=== PATIENT | female | born 1985 | race Caucasian/White ===

== ENCOUNTER 2017-11-28 15:13 | Emergency (ER) | payer OTHER | END 2017-11-28 15:30 | disposition home or self-care (01) | LOC: E/R 15:13 | DX: O99.89 Other specified diseases and conditions complicating pregnancy, childbirth and the puerperium (principal); H66.92 Otitis media, unspecified, left ear; Z3A.24 24 weeks gestation of pregnancy | CPT/HCPCS: 99283; Z7502 ==

== ENCOUNTER 2018-02-13 21:59 | Outpatient (CLI) | payer OTHER ==
[2018-02-13 23:19] LABS: ADD MAN DIFF? NO
[2018-02-13 23:23] LABS: WHITE BLOOD COUNT 14.9 10^3/ul (4.8-10.8)
[2018-02-13 23:23] LABS: BASOPHIL # 0.1 10^3/ul (0.0-0.1); BASOPHILS % 0.3 % (0.0-2.0); EOSINOPHILS % 0.3 % (0.0-7.0); HEMATOCRIT 33.7 % (37.0-47.0); HEMOGLOBIN 11.9 g/dl (12.0-16.0); LYMPHOCYTES # 1.8 10^3/ul (0.8-2.9); LYMPHOCYTES % 11.8 % (15.0-51.0); MEAN CORPUSCULAR HEMOGLOBIN 31.2 pg (29.0-33.0); MEAN CORPUSCULAR HGB CONC 35.3 g/dl (32.0-37.0); MEAN CORPUSCULAR VOLUME 88.5 fl (82.0-101.0); MEAN PLATELET VOLUME 11.1 fl (7.4-10.4); MONOCYTE # 0.9 10^3/ul (0.3-0.9); MONOCYTES % 6.3 % (0.0-11.0); NEUTROPHIL # 12.1 10^3/ul (1.6-7.5); NEUTROPHILS % 80.7 % (39.0-77.0); PLATELET COUNT 140 10^3/UL (140-415); RED BLOOD COUNT 3.81 10^6/ul (4.20-5.40); RED CELL DISTRIBUTION WIDTH 11.9 % (11.5-14.5)
[2018-02-13 23:40] LABS: ALANINE AMINOTRANSFERASE 27 IU/L (13-69); ALBUMIN 3.5 g/dl (3.3-4.9); ALBUMIN/GLOBULIN RATIO 1.25; ALKALINE PHOSPHATASE 107 IU/L (42-121); ANION GAP 14 (8-16); ASPARTATE AMINO TRANSFERASE 14 IU/L (15-46); BILIRUBIN,INDIRECT 0.5 mg/dl (0-1.1); BILIRUBIN,TOTAL 0.5 mg/dl (0.2-1.3); BLOOD UREA NITROGEN 9 mg/dl (7-20); CALCIUM 8.8 mg/dl (8.4-10.2); CARBON DIOXIDE 23 mmol/L (21-31); CHLORIDE 104 mmol/L (97-110); GLUCOSE 89 mg/dl (70-220); POTASSIUM 3.7 mmol/L (3.5-5.1); SODIUM 137 mmol/L (135-144); TOTAL PROTEIN 6.3 g/dl (6.1-8.1); URIC ACID 3.9 mg/dl (3.1-7.9)
[2018-02-13 23:54] LABS: ADD UMIC YES; UR ASCORBIC ACID NEGATIVE (NEGATIVE); UR BILIRUBIN (Dip) NEGATIVE (NEGATIVE); UR BLOOD (Dip) NEGATIVE (NEGATIVE); UR CLARITY CLEAR (CLEAR); UR COLOR COLORLESS (YELLOW); UR GLUCOSE (Dip) NEGATIVE (NEGATIVE); UR KETONES (Dip) NEGATIVE (NEGATIVE); UR LEUKOCYTE ESTERASE (Dip) TRACE Leu/ul (NEGATIVE); UR NITRITE (Dip) NEGATIVE (NEGATIVE); UR RBC 1 /HPF (0-5); UR SPECIFIC GRAVITY (Dip) 1.003 (1.003-1.030); UR TOTAL PROTEIN (Dip) NEGATIVE (NEGATIVE); UR UROBILINOGEN (Dip) NEGATIVE (NEGATIVE); UR WBC 2 /HPF (0-5)
[2018-02-14] MEDS: ACETAMINOPHEN 500 MG TAB PO (00:33)
== END 2018-02-14 01:20 | disposition home or self-care (01) ==
LOC: OBT 02-14 01:20 → L-D 21:59
DX: O60.03 Preterm labor without delivery, third trimester (principal); O26.893 Other specified pregnancy related conditions, third trimester; R51 Headache; Z3A.39 39 weeks gestation of pregnancy
CPT/HCPCS: 76815; 76818; 80053; 81001; 84560; 85025

== ENCOUNTER 2018-02-23 10:18 | Inpatient (IN) | payer OTHER ==
[2018-02-23] MEDS ORDERED: OXYTOCIN 30 UNITS/LR 500 ML IV (12:00)
[2018-02-23] MEDS ORDERED: CARBOPROST 250 MCG INJ IM (12:00)
[2018-02-23] MEDS ORDERED: MISOPROSTOL 200 MCG TAB PR (12:00)
[2018-02-23] MEDS ORDERED: IBUPROFEN 600 MG TAB PO (12:00)
[2018-02-23] MEDS ORDERED: METHYLERGONOVINE 0.2 MG INJ IM (12:00)
[2018-02-23] MEDS ORDERED: BUTORPHANOL 2 MG INJ IV (12:00)
[2018-02-23] MEDS ORDERED: LIDOCAINE 1% (MPF) 30 ML INJ INJ (12:00)
[2018-02-23 12:09] LABS: ADD MAN DIFF? NO
[2018-02-23 12:11] LABS: BASOPHILS % 0.2 % (0.0-2.0); EOSINOPHILS # 0.1 10^3/ul (0.0-0.5); EOSINOPHILS % 0.5 % (0.0-7.0); HEMATOCRIT 34.1 % (37.0-47.0); LYMPHOCYTES # 1.4 10^3/ul (0.8-2.9); LYMPHOCYTES % 14.1 % (15.0-51.0); MEAN CORPUSCULAR HEMOGLOBIN 30.9 pg (29.0-33.0); MEAN CORPUSCULAR HGB CONC 35.2 g/dl (32.0-37.0); MEAN CORPUSCULAR VOLUME 87.9 fl (82.0-101.0); MEAN PLATELET VOLUME 10.8 fl (7.4-10.4); MONOCYTE # 0.6 10^3/ul (0.3-0.9); MONOCYTES % 6.4 % (0.0-11.0); NEUTROPHIL # 7.6 10^3/ul (1.6-7.5); NEUTROPHILS % 78.1 % (39.0-77.0); PLATELET COUNT 156 10^3/UL (140-415); RED BLOOD COUNT 3.88 10^6/ul (4.20-5.40); RED CELL DISTRIBUTION WIDTH 12.1 % (11.5-14.5)
[2018-02-23 12:11] LABS: WHITE BLOOD COUNT 9.8 10^3/ul (4.8-10.8)
[2018-02-23 13:13] LABS: INR 0.96; PARTIAL THROMBOPLASTIN TIME 26.3 Sec (25.0-35.0); PROTIME 12.9 Sec (11.9-14.9)
[2018-02-23] MEDS: MISOPROSTOL 25 MCG CAPSULE PO ×3 (15:46→21:06)
[2018-02-23] MEDS: LACTATED RINGER'S 1,000 ML IV* ×2 (15:55→21:07)
[2018-02-23 21:34] LABS: HEPATITIS B SURFACE ANTIGEN NEGATIVE (NEGATIVE)
[2018-02-24] MEDS: MISOPROSTOL 25 MCG CAPSULE PO (01:10)
[2018-02-24] MEDS: LACTATED RINGER'S 1,000 ML IV* ×7 (03:46→19:00)
[2018-02-24] MEDS ORDERED: FENTAnyl 2MCG/ML-ROPIV 0.2% 100 ML (04:39)
[2018-02-24] MEDS ORDERED: NALOXONE (0.4 MG/ML) INJ IV (05:30)
[2018-02-24] MEDS ORDERED: DIPHENHYDRAMINE 50 MG INJ IV ×2 (05:30→10:30)
[2018-02-24] MEDS ORDERED: EPHEDrine SULFATE 50 MG/5 ML SYG IV (05:30)
[2018-02-24] MEDS ORDERED: FENTAnyl 2MCG/ML-ROPIV 0.2% 100 ML BAG EPI (05:30)
[2018-02-24] MEDS ORDERED: ONDANSETRON 4 MG INJ IV ×2 (05:30→10:30)
[2018-02-24] MEDS ORDERED: OXYTOCIN 30 UNITS/LR 500 ML IV ×2 (08:00→10:30)
[2018-02-24] MEDS: OXYTOCIN 30 UNITS/LR 500 ML IV ×2 (08:23→08:49)
[2018-02-24] MEDS ORDERED: DEXTROSE 5%-LR 1,000 ML IV (10:18)
[2018-02-24] MEDS ORDERED: ACETAMINOPHEN 325 MG TAB PO (10:30)
[2018-02-24] MEDS ORDERED: ZOLPIDEM 5 MG TAB PO (10:30)
[2018-02-24] MEDS ORDERED: LANOLIN 7 GM TUBE TOP (10:30)
[2018-02-24] MEDS ORDERED: CARBOPROST 250 MCG INJ IM (10:30)
[2018-02-24] MEDS ORDERED: OXYCODONE/ASPIRIN (4.88/325) TAB PO (10:30)
[2018-02-24] MEDS ORDERED: DIBUCAINE 1% 30 GM OINT PR (10:30)
[2018-02-24] MEDS ORDERED: METHYLERGONOVINE 0.2 MG INJ IM (10:30)
[2018-02-24] MEDS ORDERED: MISOPROSTOL 200 MCG TAB PR (10:30)
[2018-02-24] MEDS ORDERED: SENNA/DOCUSATE NA (8.6MG/50MG) TAB PO (10:30)
[2018-02-24] MEDS: IBUPROFEN 600 MG TAB PO ×2 (11:48→17:48)
[2018-02-24] MEDS: BENZOCAINE 20% 56 ML SPRAY TOP (11:49)
[2018-02-24] MEDS: WITCH HAZEL/GLYCERIN PAD PR (11:49)
[2018-02-24 17:34] LABS: RAPID PLASMA REAGIN NONREACTIVE (NR)
[2018-02-25] MEDS: IBUPROFEN 600 MG TAB PO ×5 (00:18→23:33)
[2018-02-25 08:28] LABS: ADD MAN DIFF? NO
[2018-02-25 08:34] LABS: WHITE BLOOD COUNT 9.8 10^3/ul (4.8-10.8)
[2018-02-25 08:34] LABS: BASOPHILS % 0.3 % (0.0-2.0); EOSINOPHILS # 0.1 10^3/ul (0.0-0.5); EOSINOPHILS % 0.8 % (0.0-7.0); HEMATOCRIT 34.1 % (37.0-47.0); HEMOGLOBIN 11.4 g/dl (12.0-16.0); LYMPHOCYTES # 1.9 10^3/ul (0.8-2.9); LYMPHOCYTES % 19.1 % (15.0-51.0); MEAN CORPUSCULAR HGB CONC 33.4 g/dl (32.0-37.0); MEAN CORPUSCULAR VOLUME 89.7 fl (82.0-101.0); MEAN PLATELET VOLUME 10.8 fl (7.4-10.4); MONOCYTE # 0.6 10^3/ul (0.3-0.9); MONOCYTES % 6.3 % (0.0-11.0); NEUTROPHIL # 7.1 10^3/ul (1.6-7.5); NEUTROPHILS % 72.5 % (39.0-77.0); PLATELET COUNT 142 10^3/UL (140-415); RED CELL DISTRIBUTION WIDTH 12.3 % (11.5-14.5)
[2018-02-25] MEDS: LACTATED RINGER'S 1,000 ML IV* (19:00)
[2018-02-26] MEDS: LACTATED RINGER'S 1,000 ML IV* (02:18)
[2018-02-26] MEDS: IBUPROFEN 600 MG TAB PO ×2 (05:44→11:57)
[2018-02-26] MEDS: DIPHTH/TET/ACEL PERTUSS (ADULT) 0.5 ML VIAL IM* (09:00)
[2018-02-26] MEDS: MEASLES,MUMPS,RUBELLA VACCINE INJ SC* (09:00)
[2018-02-26] MEDS: WITCH HAZEL/GLYCERIN PAD PR (09:04)
== END 2018-02-26 12:55 | disposition home or self-care (01) | DRG 775 ==
LOC: L-D 10:18 → PP1 02-24 10:37 → L-D 11:08
PROVIDERS: Obstetrics & Gynecology
PROC: 4A1HXCZ Monitoring of Products of Conception, Cardiac Rate, External Approach (ICD-10-PCS; 2018-02-23 10:30)
PROC: 3E0P7GC Introduction of Other Therapeutic Substance into Female Reproductive, Via Natural or Artificial Opening (ICD-10-PCS; 2018-02-23 10:30)
DX: O48.0 Post-term pregnancy (principal); O70.0 First degree perineal laceration during delivery; O75.81 Maternal exhaustion complicating labor and delivery; O99.72 Diseases of the skin and subcutaneous tissue complicating childbirth; O76 Abnormality in fetal heart rate and rhythm complicating labor and delivery; Z37.0 Single live birth; Z3A.40 40 weeks gestation of pregnancy
CPT/HCPCS: 76816; 85025; 85610; 85730; 86592; 86850; 86900; 86901; 87340; 88305; 99464